=== PATIENT | female | born 1960 | race Caucasian/White ===

== ENCOUNTER 2022-12-06 17:16 | Emergency (ER) | payer MEDICAID, SELFPAY ==
[2022-12-06 17:21] VITALS: BP 160/90; PULSE 96; RESP 18; TEMP 36.8; O2SAT 96; BMI 24.9
--- NOTE | 2022-12-06 17:42 | XR_ITS ---
The [address] [address] Patient Name: SUSANA MORALES MRN: [id number] date: 1960 Sex: F Assigned Patient Location: ER Current Patient Location: ER Accession/Order Number: [id number] Exam Date: 12/06/2022 17:55 Report Date: 12/06/2022 18:16 At the request of: MARISSA RAPHAEL Procedure: XR chest 1V EXAM: XR chest 1V at 1722 hours HISTORY: cough COMPARISON: None. TECHNIQUE: AP upright portable chest x-ray FINDINGS: The heart is not enlarged and the vasculature is not distended. No acute infiltrate, effusion or pneumothorax is identified. The osseous structures are grossly intact. XR/XR chest 1V IMPRESSION: No acute infiltrate or evidence of cardiac decompensation. Direct comparison with a previous study may be helpful in determining the chronicity of these findings. Electronically authenticated by: PALOMA SAMAYOA Date: 12/06/2022 18:16
--- NOTE | 2022-12-06 18:31 | ED.URI1 ---
HPI - URI/Sore Throat General Chief Complaint: Upper Respiratory Infection Stated Complaint: URTI Time Seen by Provider: 12/06/22 17:18 Source: patient History of Present Illness HPI Narrative: 62-year-old female presents for cough. She's been coughing up yellow to green colored phlegm, no hemoptysis or fever. She wasn't getting better so she came in here to get checked. She has not had a fever. no vomiting and diarrhea. Related Data Previous Rx's Medication Instructions Recorded azithromycin 250 mg tablet See Rx Instructions PO .COMPLEX #6 12/06/22 (Zithromax Z-Isaias) tabs benzonatate 100 mg capsule 100 mg PO TID PRN cough #20 caps 12/06/22 Allergies Allergy/AdvReac Type Severity Reaction Status Date / Time Penicillins Allergy Severe Verified 12/06/22 17:20 Review of Systems ROS Narrative A ten point review of systems is negative except as noted above. Exam Narrative Exam Narrative: Nurses note and vital signs reviewed and patient is not hypoxic. General: The patient appears well and in no apparent distress. Patient is resting comfortably on cart. Skin: Warm, dry, no pallor noted. There is no rash noted. Head: Normocephalic, atraumatic Eye: Normal conjunctiva, no drainage Ears, Nose, Mouth, and Throat: oral mucosa is moist. Nares patent. Cardiovascular: Regular Rate and Rhythm Respiratory: Patient is in no distress, no accessory muscle use, lungs are clear to auscultation, no wheezing, rales or rhonchi Back: non-tender GI: soft and nontender. Musculoskeletal: The patient has no evidence of calf tenderness, no pitting edema, symmetrical pulses noted bilaterally Neurological: A&O, normal speech Psychiatric: Cooperative Constitutional Vital Signs, click to edit/add: Last Vital Signs Temp 98.2 F 12/06/22 17:21 Pulse 96 H 12/06/22 17:21 Resp 18 12/06/22 17:21 BP 160/90 H 12/06/22 17:21 Pulse Ox 96 12/06/22 17:21 O2 Del Method Room Air 12/06/22 17:21 Course Vital Signs Vital signs: Vital Signs Temperature 98.2 F 12/06/22 17:21 Pulse Rate 96 H 12/06/22 17:21 Respiratory Rate 18 12/06/22 17:21 Blood Pressure 160/90 H 12/06/22 17:21 Pulse Oximetry 96 12/06/22 17:21 Oxygen Delivery Method Room Air 12/06/22 17:21 Temperature 98.2 F 12/06/22 17:21 Pulse Rate 96 H 12/06/22 17:21 Respiratory Rate 18 12/06/22 17:21 Blood Pressure 160/90 H 12/06/22 17:21 Pulse Oximetry 96 12/06/22 17:21 Oxygen Delivery Method Room Air 12/06/22 17:21 MDM - URI/Sore Throat MDM Narrative Medical decision making narrative: chest x-ray is negative per radiologist. I do not suspect. Treatment diagnosis and follow-up were discussed with the patient. Differential Diagnosis Differential diagnosis: Likely upper respiratory infection, viral infection, bronchitis and other (pneumonia) Imaging Data Chest x-ray: Radiologist's impression: Procedure: XR chest 1V EXAM: XR chest 1V at 1722 hours HISTORY: cough COMPARISON: None. TECHNIQUE: AP upright portable chest x-ray FINDINGS: The heart is not enlarged and the vasculature is not distended. No acute infiltrate, effusion or pneumothorax is identified. The osseous structures are grossly intact. IMPRESSION: No acute infiltrate or evidence of cardiac decompensation. Direct comparison with a previous study may be helpful in determining the chronicity of these findings. Electronically authenticated by: PALOMA SAMAYOA Date: 12/06/2022 18:16 Discharge Plan Discharge Chief Complaint: Upper Respiratory Infection Clinical Impression: Upper respiratory infection Patient Disposition: Home, Self-Care Time of Disposition Decision: 18:27 Condition: Good Mode of Transportation: Private Vehicle Prescriptions / Home Meds: New azithromycin [Zithromax Z-Isaias] 250 mg tablet See Rx Instructions .ROUTE .COMPLEX Qty: 6 0RF Rx Instructions: For 250 mg dose pack: take 500 mg today (day 1), then 250 mg for 4 days (days 2-5) benzonatate 100 mg capsule 100 mg PO TID PRN (Reason: cough) Qty: 20 0RF Instructions: Upper Respiratory Infection (ED) Stand Alone Forms: Portal Instructions Referrals: Physician,Non-Staff, MD [Primary Care Provider] - 1 week
== END 2022-12-06 18:41 | disposition home or self-care (01) ==
PROVIDERS: Emergency Provider Emergency Medicine
DX: J06.9 Acute upper respiratory infection, unspecified (principal)
CPT/HCPCS: 71045; 99283